=== PATIENT | female | born 1990 | race Caucasian/White ===

== ENCOUNTER 2017-02-02 16:27 | Observation (INO) | payer OTHER ==
[~2017-02-02] VITALS: Ht 172.7 cm; Wt 110.7 kg
[~2017-02-02 16:27] MED LIST: AMOXICILLIN 50500 MG PO; AMOXICILLIN500 M2 PO; AUGMENTIN1 TA1 PO; AZITHROMYCIN250 MG PO; DICLEGIS1 TCP PO; IBU800 MG PO; METFOMIN HYDRO850 MG PO; PHENERGAN 25MG.25 M1 PO; PHENERGAN25 M3 PO; PRENATAL PLUS1 TA1 PO; PROMETHAZINE PR; PROSED D/S1 TAB OR; SULFAMETHOXAZOL1 TA6 PO; VICODIN 5/500 T1 TAB PO; ZOFRAN ODT4 MG PO; ZOFRAN4 MG PO
[2017-02-02 16:37] VITALS: BP 149/88
--- NOTE | 2017-02-02 17:11 | Emergency Room Report ---
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 N Clinical Suspician of Infection? N Mental Status: 1 - Regular (Normal Baseline) Sepsis Risk:Low Sepsis Risk Have you (or family members/close friends) recently traveled outside the [place]? N If Yes, where/when: Have you had exposure to infectious disease within the past month? N TB? Other? Specify: 26 years old white female who developed sudden onset RIGHT lower quadrant pain radiating through the RIGHT flank region. She is sexually active and uses CONDOMS. Her last menstrual period was January 10. She is regular. She is 2 para 2 both were . She denies nausea vomiting dysuria or hematuria, there is no shortness of breath or chest pain. She is status post cholecystectomy. Source patient, RN notes reviewed, family Exam Limitations no limitations ALLERGIES Coded Allergies: No Known Drug Allergies (NKDA) (02/16/16) (Juan RAMIREZ,[facility]) Home Medications Reported Medications METFORMIN HCL (Metformin HCl) 850 MG PO BID Promethazine Hydrochloride (Phenergan 25MG Tab) 25 MG PO Q6H PRN (Julia RAMIREZ,[facility] [place]) History Medical History General CAD? No Angina: No [place]: No Hypertension? No Hyperlipidemia? No CHF? No DVT? No PE? No COPD? No Asthma? No Anemia? No GERD? No Gastric ulcers? No GI Bleed? No Hernia? No Thyroid Problems? No Hypothyroidism? No CVA? No Seizures? No Diabetes? No Renal Insuffiency? No End Stage Renal Disease? No UTI? No Stones? No BPH? No GB Disease: No Nephritic Syndrome? No Asplenia? No Hepatitis? No Sickle Cell Disease? No Arthritis? No Migraines? No Cataracts? No Glaucoma? No MRSA? No HIV? No TB? No Anxiety? No Depression? No Cancer? 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 Respiratory no symptoms reported Cardiovascular no symptoms reported Gastrointestinal abdominal pain Genitourinary no symptoms reported. Musculoskeletal no symptoms reported Skin no symptoms reported Psychiatric/Neurological no symptoms reported (Juan RAMIREZ,Fabiana) Physical Exam Vital Signs Vital Signs Date Time Temp Pulse Resp B/P Pulse O2 O2 Flow FiO2 Ox Delivery Rate 02/03 0043 98.1 74 16 117/62 96 02/03 0035 74 02/03 0035 98.1 74 16 117/62 02/03 0035 98.1 74 16 117/62 02/03 0035 96 ROOM AIR 02/02 2321 85 20 142/84 95 02/02 2229 83 20 138/75 98 02/02 2217 20 02/02 1942 16 02/02 1918 98 16 130/73 97 02/02 1834 98 16 128/70 100 02/02 1718 16 02/02 1706 101 18 156/73 98 02/02 1637 98.1 100 18 149/88 98 - WBC >12,000 or <4,000 or 10% bands? 2 or more SIRS Criteria Met? B/P:156/73 MAP:108 Creatinine >2.0? UA output<0.5ml/kg/hr for 2 hrs? Platelet count >100,000? Lactate >2.0mmol/1? INR >1.2 or PTT > than 60 sec? Evidence of Organ Dysfunction? Provider documented clinical suspician of infection? N Sepsis Criteria Count: 1 Sepsis Risk: Low Sepsis Risk General Appearance normal appearance, WD/WN Eye Exam - bilateral eye normal exam, bilateral eye PERRL, bilateral eye EOMI Ear, Nose, Throat hearing grossly normal, normal ENT inspection Neck normal inspection, non-tender, supple, full range of motion Respiratory Status Yes: trachea midline, chest symmetrical, non tender chest. No: respiratory distress. Lung Sounds bilateral: normal breath sounds, lungs clear. Cardiovascular normal exam, regular rate/rhythm, no peripheral edema, no gallop, no JVD, no murmur, no rub, normal peripheral pulses Peripheral Pulses Pulses normal Yes Gastrointestinal normal bowel sounds, soft, no organomegaly, no guarding, rebound, tenderness, RIGHT lower quadrant tenderness without guarding or rigidity there is cross tenderness upon palpation of the LEFT lower quadrant towards the RIGHT lower quadrant, there is no rebound tenderness, positive bowel sounds. Back normal inspection, no CVA tenderness, no vertebral tenderness Extremities non-tender, normal range of motion, normal inspection Strength 5 Upper Ext (L), 5 Upper Ext (R), 5 Lower Ext (L), 5 Lower Ext (R) Pelvic normal external exam, vulva and vagina are within normal limits, mild tenderness with guarding in the RIGHT lower quadrant, cervix is firm and closed mild cervical motion tenderness, no adnexal masses were felt. The uterus is mormal and tenderness. 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 No Results/Orders Laboratory Tests 02/02/17 1850: Urine Color YELLOW, Urine Appearance CLEAR, Urine pH 6.5, Ur Specific [place] <= 1.005, Urine Protein NEGATIVE, Urine Ketones NEGATIVE, Urine Blood NEGATIVE, Urine Nitrate NEGATIVE, Urine Bilirubin NEGATIVE, Urine Urobilinogen 0.2, Ur Leukocyte Esterase NEGATIVE, Ur Squamous Epith Cells 10-20, Urine Glucose NEGATIVE 02/02/17 1715: Sodium 137, Potassium 3.8, Chloride 103, Carbon Dioxide 28, BUN 12, Creatinine 0.8, Estimated Creat Clear 188, Estimated GFR (MDRD) 87, Glucose 102, Calcium 9.1, Total Bilirubin 0.2, AST 8 L, ALT 19, Alkaline Phosphatase 84, Total Protein 8.0, Albumin 3.9, Globulin 4.1 H, Albumin/Globulin Ratio 1.0 L, WBC 11.7 H, RBC 4.97, Hgb 13.1, Hct 39.4, MCV 79.4 L, RDW 13.1, Plt Count 399, MPV 7.4, Gran % 74.1, Gran # 8.6 H, Lymphocytes % 18.9, Monocytes % 5.1, Eosinophils % 1.6, Basophils % 0.3, Lymphocytes # 2.2, Monocytes # 0.6, Eosinophils # 0.2, Basophils # 0.0, PUBS MCHC 33.1, MCH 26.3 L Current Medication Orders Sig/Benji Start time Last Medication Dose Route Stop Time Status Admin Hydromorphone HCl 2 MG Q4HP PRN 02/02 2230 AC 02/03 IV 0731 Sodium Chloride 1,000 ML .Q8H 02/02 2230 AC 02/03 IV 0008 Sodium Chloride 10 ML PRN PRN 02/02 2230 AC IV Ondansetron HCl 0 .STK-MED ONE 02/03 2216 DC .ROUTE Hydromorphone HCl 2 MG ONCE ONE 02/02 2215 DC 02/02 IV 02/02 Ondansetron HCl 4 MG ONCE ONE 02/02 2215 DC 02/02 IV 02/02 Hydromorphone HCl 0 .STK-MED ONE 02/03 2212 DC .ROUTE Ondansetron HCl 0 .STK-MED ONE 02/02 1939 DC .ROUTE Morphine Sulfate 0 .STK-MED ONE 02/02 1937 DC .ROUTE Morphine Sulfate 2 MG ONCE ONE 02/02 193 DC 02/02 IV 02/02 193 194 Ondansetron HCl 4 MG ONCE ONE 02/02 1930 DC 02/02 IV 02/02 193 1943 Ketorolac 30 MG ONCE ONE 02/02 1715 DC 02/02 Tromethamine IV 02/02 1716 1718 Ondansetron HCl 4 MG ONCE ONE 02/02 1715 DC 02/02 IV 02/02 1716 1718 Sodium Chloride 1,000 ML .Q1H1M 02/02 1715 DC 02/02 IV 02/02 1815 1717 Sodium Chloride 10 ML PRN PRN 02/02 1715 AC IV 02/03 1703 Ketorolac 0 .STK-MED ONE 02/02 1713 DC Tromethamine .ROUTE Ondansetron HCl 0 .STK-MED ONE 02/02 1713 DC .ROUTE Sodium Chloride 1,000 ML .STK-MED ONE 02/02 1713 DC IV Orders Procedure Date/time Status DIET-NOTHING BY MOUTH 02/03 B Active COMPLETE METABOLIC PANEL 02/03 600 Complete CBC WITH AUTO DIFF 02/03 600 Complete Decision to admit 02/[address] ABD W/RLQ PAIN REQ 02/03 1704 Complete URINALYSIS/COMPLETE 02/02 170 Complete SERUM , QUAL 02/02 170 Complete CBC WITH AUTO DIFF 02/02 1702 Complete CHEM 12 PROFILE 02/02 170 Complete ADMIT PATIENT 02/02 UNK Active VITAL SIGNS 02/02 UNK Active POM NURSE ALISHA HOSE ORDER 02/02 UNK Active IV SALINE LOCK 02/02 UNK Active CODE STATUS 02/02 UNK Active PATIENT ACTIVITY ORDER 02/02 UNK Active LABS/Meds/Orders Comment Case discussed with ObGyn therapeutic recreation assistant, hereby present in the emergency room, Dr. Zhao, who was informed by the equipment service technician of the ultrasound findings consistent with ruptured ovarian cyst, currently leaking. The ObGyn is playing to admit patient and take her to exploratory laparoscopy in the morning. The pelvic, transvaginal, ultrasound reveals no ovarian torsion, and is actually consistent with a ruptured, leaking RIGHT ovarian cyst. Care transferred to ObGyn, will write temporary admission orders per hospital protocol. Upon patient's arrival to the floor, the floor nurse will contact PCP in order to obtain full inpatient admission orders. (Joe Dumont MD) Departure Departure Time of Disposition 2049 Disposition Still a Patient Condition STABLE Referrals Jaime Zhao MD. Additional Instructions The patient received morphine for pain and she continued to have pain. CT scan report was positive for a large 5.4 cm ovarian cyst. The patient wanted Dr. ZHAO notified. He recommended transvaginal ultrasound. I called DANILO the radio antenna installer. 2049 THE CARE WAS TRANSFERED TO DR MENCHACA PENDING US AND EVALUATION BY DR ZHAO FOR FINAL MEDICAL DECISION MAKING. ED Critical Care Critical Care No If Critical Care minutes are documented, the time involved in the performance of seperately reportable procedures was not counted toward critical care time documented. I directly delivered medical care to this critically ill and/or injured patient. Timely evaluation and treatment was necessary to address the significant organ system(s) dysfunction present in this patient. (Fabiana Martinez MD) Departure Clinical Impression Primary Impression: Ruptured ovarian cyst (Joe Dumont MD) at 2054 at 0832
--- NOTE | 2017-02-02 17:11 | Emergency Room Report ---
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 N Clinical Suspician of Infection? N Mental Status: 1 - Regular (Normal Baseline) Sepsis Risk:Low Sepsis Risk Have you (or family members/close friends) recently traveled outside the [place]? N If Yes, where/when: Have you had exposure to infectious disease within the past month? N TB? Other? Specify: 26 years old white female who developed sudden onset RIGHT lower quadrant pain radiating through the RIGHT flank region. She is sexually active and uses CONDOMS. Her last menstrual period was January 10. She is regular. She is 2 para 2 both were . She denies nausea vomiting dysuria or hematuria, there is no shortness of breath or chest pain. She is status post cholecystectomy. Source patient, RN notes reviewed, family Exam Limitations no limitations ALLERGIES Coded Allergies: No Known Drug Allergies (NKDA) (02/16/16) (Juan RAMIREZ,[facility]) Home Medications Reported Medications METFORMIN HCL (Metformin HCl) 850 MG PO BID Promethazine Hydrochloride (Phenergan 25MG Tab) 25 MG PO Q6H PRN (Julia RAMIREZ,[place]) History Medical History General CAD? No Angina: No [place]: No Hypertension? No Hyperlipidemia? No CHF? No DVT? No PE? No COPD? No Asthma? No Anemia? No GERD? No Gastric ulcers? No GI Bleed? No Hernia? No Thyroid Problems? No Hypothyroidism? No CVA? No Seizures? No Diabetes? No Renal Insuffiency? No End Stage Renal Disease? No UTI? No Stones? No BPH? No GB Disease: No Nephritic Syndrome? No Asplenia? No Hepatitis? No Sickle Cell Disease? No Arthritis? No Migraines? No Cataracts? No Glaucoma? No MRSA? No HIV? No TB? No Anxiety? No Depression? No Cancer? 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 Respiratory no symptoms reported Cardiovascular no symptoms reported Gastrointestinal abdominal pain Genitourinary no symptoms reported. Musculoskeletal no symptoms reported Skin no symptoms reported Psychiatric/Neurological no symptoms reported (Juan RAMIREZ,Fabiana) Physical Exam Vital Signs Vital Signs Date Time Temp Pulse Resp B/P Pulse O2 O2 Flow FiO2 Ox Delivery Rate 02/03 0043 98.1 74 16 117/62 96 02/03 0035 74 02/03 0035 98.1 74 16 117/62 02/03 0035 98.1 74 16 117/62 02/03 0035 96 ROOM AIR 02/02 2321 85 20 142/84 95 02/02 2229 83 20 138/75 98 02/02 2217 20 02/02 1942 16 02/02 1918 98 16 130/73 97 02/02 1834 98 16 128/70 100 02/02 1718 16 02/02 1706 101 18 156/73 98 02/02 1637 98.1 100 18 149/88 98 - WBC >12,000 or <4,000 or 10% bands? 2 or more SIRS Criteria Met? B/P:156/73 MAP:108 Creatinine >2.0? UA output<0.5ml/kg/hr for 2 hrs? Platelet count >100,000? Lactate >2.0mmol/1? INR >1.2 or PTT > than 60 sec? Evidence of Organ Dysfunction? Provider documented clinical suspician of infection? N Sepsis Criteria Count: 1 Sepsis Risk: Low Sepsis Risk General Appearance normal appearance, WD/WN Eye Exam - bilateral eye normal exam, bilateral eye PERRL, bilateral eye EOMI Ear, Nose, Throat hearing grossly normal, normal ENT inspection Neck normal inspection, non-tender, supple, full range of motion Respiratory Status Yes: trachea midline, chest symmetrical, non tender chest. No: respiratory distress. Lung Sounds bilateral: normal breath sounds, lungs clear. Cardiovascular normal exam, regular rate/rhythm, no peripheral edema, no gallop, no JVD, no murmur, no rub, normal peripheral pulses Peripheral Pulses Pulses normal Yes Gastrointestinal normal bowel sounds, soft, no organomegaly, no guarding, rebound, tenderness, RIGHT lower quadrant tenderness without guarding or rigidity there is cross tenderness upon palpation of the LEFT lower quadrant towards the RIGHT lower quadrant, there is no rebound tenderness, positive bowel sounds. Back normal inspection, no CVA tenderness, no vertebral tenderness Extremities non-tender, normal range of motion, normal inspection Strength 5 Upper Ext (L), 5 Upper Ext (R), 5 Lower Ext (L), 5 Lower Ext (R) Pelvic normal external exam, vulva and vagina are within normal limits, mild tenderness with guarding in the RIGHT lower quadrant, cervix is firm and closed mild cervical motion tenderness, no adnexal masses were felt. The uterus is mormal and tenderness. 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 No Results/Orders Laboratory Tests 02/02/17 1850: Urine Color YELLOW, Urine Appearance CLEAR, Urine pH 6.5, Ur Specific [place] <= 1.005, Urine Protein NEGATIVE, Urine Ketones NEGATIVE, Urine Blood NEGATIVE, Urine Nitrate NEGATIVE, Urine Bilirubin NEGATIVE, Urine Urobilinogen 0.2, Ur Leukocyte Esterase NEGATIVE, Ur Squamous Epith Cells 10-20, Urine Glucose NEGATIVE 02/02/17 1715: Sodium 137, Potassium 3.8, Chloride 103, Carbon Dioxide 28, BUN 12, Creatinine 0.8, Estimated Creat Clear 188, Estimated GFR (MDRD) 87, Glucose 102, Calcium 9.1, Total Bilirubin 0.2, AST 8 L, ALT 19, Alkaline Phosphatase 84, Total Protein 8.0, Albumin 3.9, Globulin 4.1 H, Albumin/Globulin Ratio 1.0 L, WBC 11.7 H, RBC 4.97, Hgb 13.1, Hct 39.4, MCV 79.4 L, RDW 13.1, Plt Count 399, MPV 7.4, Gran % 74.1, Gran # 8.6 H, Lymphocytes % 18.9, Monocytes % 5.1, Eosinophils % 1.6, Basophils % 0.3, Lymphocytes # 2.2, Monocytes # 0.6, Eosinophils # 0.2, Basophils # 0.0, PUBS MCHC 33.1, MCH 26.3 L Current Medication Orders Sig/Benji Start time Last Medication Dose Route Stop Time Status Admin Hydromorphone HCl 2 MG Q4HP PRN 02/02 2230 AC 02/03 IV 0731 Sodium Chloride 1,000 ML .Q8H 02/02 2230 AC 02/03 IV 0008 Sodium Chloride 10 ML PRN PRN 02/02 2230 AC IV Ondansetron HCl 0 .STK-MED ONE 02/03 2216 DC .ROUTE Hydromorphone HCl 2 MG ONCE ONE 02/02 2215 DC 02/02 IV 02/02 Ondansetron HCl 4 MG ONCE ONE 02/02 2215 DC 02/02 IV 02/02 Hydromorphone HCl 0 .STK-MED ONE 02/03 2212 DC .ROUTE Ondansetron HCl 0 .STK-MED ONE 02/02 1939 DC .ROUTE Morphine Sulfate 0 .STK-MED ONE 02/02 1937 DC .ROUTE Morphine Sulfate 2 MG ONCE ONE 02/02 193 DC 02/02 IV 02/02 193 194 Ondansetron HCl 4 MG ONCE ONE 02/02 1930 DC 02/02 IV 02/02 193 1943 Ketorolac 30 MG ONCE ONE 02/02 1715 DC 02/02 Tromethamine IV 02/02 1716 1718 Ondansetron HCl 4 MG ONCE ONE 02/02 1715 DC 02/02 IV 02/02 1716 1718 Sodium Chloride 1,000 ML .Q1H1M 02/02 1715 DC 02/02 IV 02/02 1815 1717 Sodium Chloride 10 ML PRN PRN 02/02 1715 AC IV 02/03 1703 Ketorolac 0 .STK-MED ONE 02/02 1713 DC Tromethamine .ROUTE Ondansetron HCl 0 .STK-MED ONE 02/02 1713 DC .ROUTE Sodium Chloride 1,000 ML .STK-MED ONE 02/02 1713 DC IV Orders Procedure Date/time Status DIET-NOTHING BY MOUTH 02/03 B Active COMPLETE METABOLIC PANEL 02/03 600 Complete CBC WITH AUTO DIFF 02/03 600 Complete Decision to admit 02/[address] ABD W/RLQ PAIN REQ 02/03 1704 Complete URINALYSIS/COMPLETE 02/02 170 Complete SERUM , QUAL 02/02 170 Complete CBC WITH AUTO DIFF 02/02 1702 Complete CHEM 12 PROFILE 02/02 170 Complete ADMIT PATIENT 02/02 UNK Active VITAL SIGNS 02/02 UNK Active POM NURSE ALISHA HOSE ORDER 02/02 UNK Active IV SALINE LOCK 02/02 UNK Active CODE STATUS 02/02 UNK Active PATIENT ACTIVITY ORDER 02/02 UNK Active LABS/Meds/Orders Comment Case discussed with ObGyn instrumentation supervisor, hereby present in the emergency room, Dr. Zhao, who was informed by the scrub technician of the ultrasound findings consistent with ruptured ovarian cyst, currently leaking. The ObGyn is playing to admit patient and take her to exploratory laparoscopy in the morning. The pelvic, transvaginal, ultrasound reveals no ovarian torsion, and is actually consistent with a ruptured, leaking RIGHT ovarian cyst. Care transferred to ObGyn, will write temporary admission orders per hospital protocol. Upon patient's arrival to the floor, the floor nurse will contact PCP in order to obtain full inpatient admission orders. (Joe Dumont MD) Departure Departure Time of Disposition 2049 Disposition Still a Patient Condition STABLE Referrals Jaime Zhao MD. Additional Instructions The patient received morphine for pain and she continued to have pain. CT scan report was positive for a large 5.4 cm ovarian cyst. The patient wanted Dr. ZHAO notified. He recommended transvaginal ultrasound. I called DANILO the smt machine operator. 2049 THE CARE WAS TRANSFERED TO DR MENCHACA PENDING US AND EVALUATION BY DR ZHAO FOR FINAL MEDICAL DECISION MAKING. ED Critical Care Critical Care No If Critical Care minutes are documented, the time involved in the performance of seperately reportable procedures was not counted toward critical care time documented. I directly delivered medical care to this critically ill and/or injured patient. Timely evaluation and treatment was necessary to address the significant organ system(s) dysfunction present in this patient. (Fabiana Martinez MD) Departure Clinical Impression Primary Impression: Ruptured ovarian cyst (Joe Dumont MD) at 2054 at 0832
[2017-02-02 17:26] LABS: HEMOGLOBIN 13.1 g/dL (12.2-16.2); LYMPH # 2.2 K/mm3 (0.7-4.5); LYMPH % 18.9 % (10-50.0)
[2017-02-02 18:59] LABS: URINE BILIRUBIN - DIPSTICK NEGATIVE (NEG); URINE BLOOD NEGATIVE (NEG)
--- NOTE | 2017-02-02 22:26 | RADIOLOGY REPORT PS360 ---
US PELVIS-TRANSVAGINAL ONLY HISTORY: Right lower quadrant pain with large right ovarian cyst. Evaluate for torsion LARGE RT OV CYST, R/O TORSION ORDERING PHYSICIAN: Fabiana Martinez MD PATIENT AGE: 26 years COMPARISON: None FINDINGS: The uterus measures 8.4 x 4.5 x 6.4 cm and has a combined endometrial thickness of 13 mm. The left ovary is 2.9 x 1.9 x 1.6 cm with multiple small ovarian follicles. The right ovary is 5.4 x 3.3 x 4.8 cm and contains a 4.6 x 3.4 cm cyst with a somewhat lacy appearance with posterior acoustical enhancement. This could represent prominent hemorrhagic ovarian cyst versus endometrioma. Trace amount cul-de-sac fluid noted. Blood flow is present to both ovaries. IMPRESSION: 1. 4.6 cm complex right ovary and cysts which may be due to hemorrhagic ovarian cyst versus endometrioma. 2. There is blood flow present to both ovaries. No evidence of torsion. 3. Multiple follicles of the left ovary. 4. Thickened endometrium
[2017-02-03] VITALS (18 sets, daily range): BP systolic 102–135; BP diastolic 42–80
--- NOTE | 2017-02-03 04:33 | RADIOLOGY REPORT PS360 ---
CT ABD PELVIS W/WO CONTRAST INDICATION: Right lower quadrant pain with nausea and vomiting RLQ ABD PAIN ORDERING PHYSICIAN: Fabiana Martinez MD PATIENT AGE: 26 years COMPARISON: 07/14/2011 TECHNIQUE: Axial images are obtained without and with contrast. Sagittal and coronal reformatted images are reviewed as well. FINDINGS: The lung bases are clear. There has been a prior cholecystectomy. The liver, spleen, adrenal glands, and pancreas are unremarkable. No biliary dilatation. No renal calculi or hydronephrosis. No ureteral calculi. No intestinal obstruction or free air. Unremarkable appendix. There is a 5 cm cystic lesion in the posterior adnexal area on the right consistent with an ovarian cyst. There is thickening versus nondistention of the ascending, transverse, and descending colon. No stranding of the pericolic fat. No evidence of diverticulitis. No acute bony anomalies. IMPRESSION: 1. Thickening of the colon which may be due to nondistention or colitis. 2. No evidence of appendicitis or obstructing ureteral calculus. 3. 5 cm right ovarian cyst which may be better evaluated with ultrasound
--- NOTE | 2017-02-03 06:36 | ACUTE CARE PROGRESS NOTE (QUA) ---
Progress Notes Subjective Date 02/03/17 Time 0634 Note The patient has done reasonably well overnight. She has been medicated twice for pain. She states that her RIGHT lower quadrant pain still exists, but is somewhat relieved. She has not been out of bed yet. Complete blood count has just been drawn (results pending). She is afebrile. I will reevaluate later this morning. Assessment/Plan This inpt stay is expected to cross 2 MNs from start of care No at 0635
[2017-02-03 06:38] LABS: HEMOGLOBIN 12.3 g/dL (12.2-16.2)
--- NOTE | 2017-02-03 07:34 | PHARMACY CLINIC NOTE ---
Patient Demographics Patient Demographics Admission date: 02/02/17 Date: 02/03/17 Time: 0734 Allergies Coded Allergies: No Known Drug Allergies (NKDA) (02/16/16) HEIGHT- FT: 5 IN: 8.00 K.678 VTE General Information Labs: Laboratory Tests 02/03 02/02 0615 1715 Hematology Hgb (12.2 - 16.2 g/dL) 12.3 13.1 Hct (37.0 - 47.0 %) 37.6 39.4 Plt Count (142 - 424 K/mm3) [phone] Disclaimer The following section includes nursing documentation that has been pulled in for pharmacy review. Patient's VTE score: 1 Patient's VTE Risk: VERY LOW RISK Clinical trial participant? No VTE prophylaxis [id number] [id number] VTE prophylaxis ordered? Yes Type of prophylaxis/treatment: ALISHA at 0734
--- NOTE | 2017-02-03 07:49 | ACUTE CARE PROGRESS NOTE (QUA) ---
Progress Notes Subjective Date 02/03/17 Time 0748 Note The patient's complete blood count remained stable. However, in spite of IV Dilaudid, she is unable to stand or walk without significant RIGHT lower quadrant pain. I discussed this with the patient and her family. The plan is for a diagnostic laparoscopy today, with aspiration of RIGHT ovarian cyst. The patient understands the risks and benefits of the procedure. She also understands the small possibility of the need for an open laparotomy. She wishes to proceed. Assessment/Plan This inpt stay is expected to cross 2 MNs from start of care No at 0701
--- NOTE | 2017-02-03 11:58 | Operative Note ---
Procedure/Operative Record Date of Procedure: 02/03/17 Referring physician: Dr. Livingston Pre-op diagnosis: 1. Pelvic pain. 2. RIGHT ovarian cyst. Post-op diagnosis: 1. Pelvic pain. 2. Leaking hemorrhagic RIGHT ovarian cyst, undergoing torsion. Procedure performed: 1. Diagnostic laparoscopy. 2. Aspiration of RIGHT ovarian cyst. 3. Detorsion of RIGHT ovarian cyst. 4. Evacuation of hemoperitoneum. 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 Pelvic pain. 2. RIGHT ovarian cyst. Description of procedure: After the patient was prepped and draped in usual fashion and general anesthesia was administered, examination under anesthesia revealed a normal-sized anteverted uterus, with no adnexal masses palpable. A weighted speculum was placed within the posterior fourchette of the vagina, anterior lip of the cervix was grasped with a single-tooth tenaculum. The cervix was easily dilated to number 14 Hegar dilators, and a HUMI uterine elevator was inserted into the endocervix, and the bulb inflated for easy uterine manipulation during the laparoscopy. After appropriate regloving, the skin on either side of the umbilicus was tented up with towel clips. A small incision was made in the base of the umbilicus with a knife, and a Veress needle was inserted into the abdominal cavity. After demonstration of negative pressure, and adequate phisoperitoneum was created with carbon dioxide gas. The Veress needle was then replaced with a trocar and cannula, using the Lean Train system, and the trocar replaced with a laparoscope. Dark blood was noted in the cul-de-sac and throughout the pelvis, extending up the RIGHT gutter. It was suctioned. The uterus was of normal size and configuration. Each tube was followed out to its fimbriated end, which appeared free. The LEFT ovary appeared normal. Some omental adhesions in the RIGHT upper quadrant, presumably from the previous laparoscopic cholecystectomy. The RIGHT ovary was at least 7 cm in diameter, and forced behind the uterus. It was thin- walled. A needle aspirator was inserted into the cyst, and a large amount of serosanguineous fluid and blood wasRetrieved. The cyst deflated to normal size and the puncture site was fulgurated. The remainder of any blood was suctioned from the pelvis, and the phisoperitoneum was reduced, there being no further pathology noted. The instruments were removed under direct visualization. The skin incision was infused with a dilute solution of Marcaine, as a local anesthetic, and closed with a subcuticular suture of 3-0 Vicryl. The HUMI was deflated and removed. The sponge and needle counts correct. Estimated blood loss was 100 mL. The patient tolerated the procedure well, was taken to PACU in excellent condition. EBL (ml): 100 Complications: None Specimens: None at 1153
--- NOTE | 2017-02-03 12:09 | Anesthesia Record ---
Anesthesia Record Part II Discharge time: 1230 Destination: Second Floor PACU nurse assessment review? Yes Patient is: Stable Anesthesia complications? No at 1203
--- NOTE | 2017-02-03 12:09 | Anesthesia Record ---
Anesthesia Record Part I Total IV fluids: 700 EBL (ml): 100 Urine Output: 200 B/P: 116/60 % SaO2: 100 Pulse: 78 Resps: 16 Temp: 98 Patient is: Drowsy, Nasal O2, Stable Stable to PACU at: 1200 at 1208
[2017-02-03 13:00] LABS: HEMOGLOBIN 12.3 g/dL (12.2-16.2)
--- NOTE | 2017-02-03 14:52 | ACUTE CARE PROGRESS NOTE (QUA) ---
Progress Notes Subjective Date 02/03/17 Time 1450 Note This is day of surgery and hospital day number 2. The patient is afebrile. Vital signs are stable. Wound clean. Abdomen soft. Her preop pain is much improved. She is still somewhat drowsy and I feel she is best served to be observed for any further abdominal bleeding. If she is stable, home tomorrow. Assessment/Plan This inpt stay is expected to cross 2 MNs from start of care No at 6023
[2017-02-03] MEDS ORDERED: PRENATAL PLUS1 TA1 PO (15:09)
[2017-02-04 05:25] VITALS: BP 95/38
--- NOTE | 2017-02-04 06:18 | ACUTE CARE PROGRESS NOTE (QUA) ---
Progress Notes Subjective Date 02/04/17 Time 0617 Note This is hospital day number 3 and postop day number 1. The patient is afebrile. Vital signs stable. Hemoglobin 12.3 g. Abdomen soft. Wound clean. Minimal pain. She'll be discharged today. Assessment/Plan This inpt stay is expected to cross 2 MNs from start of care No at 0618
[2017-02-04] MEDS ORDERED: PROVERA 10MG TA10 MG PO (06:20)
--- NOTE | 2017-02-04 06:25 | DISCHARGE SUMMARY STANDARD ---
Discharge Summary Date of admission: 02/02/17 Date of discharge: 02/04/17 Patient condition: Stable Discharge diagnosis (es): 1. Pelvic pain. 2. Leaking hemorrhagic RIGHT ovarian cyst, undergoing torsion Hospital course: This 26-year-old white female was admitted with severe abdominal pain and CT and ultrasound evidence of a RIGHT adnexal mass. She was initially observed overnight, but her pain did not dissipate with narcotic management, and so she was taken to the operating room on 02/03/17. She underwent a diagnostic laparoscopy with evacuation of hemoperitoneum and aspiration indeed torsion of a large RIGHT ovarian cyst. Postoperatively, the patient has done well. Her hemoglobin is 12.3 g, and has been stable. Her wound is clean. Her abdomen is soft. She is eating and ambulating and passing flatus. She is not a smoker. She is discharged home on the first postoperative and third hospital day on Tylenol and Motrin, as needed for pain. She is to continue the metformin that she takes for polycystic ovarian syndrome. She is to begin on Provera 10 mg 1 by mouth daily for 10 days for ovarian cyst suppression. She is given appropriate instructions as to diet, exercise, and wound care, and she is to return the office in 2 weeks for follow-up at 0624
[2017-02-04 08:15] VITALS: BP 118/78
== END 2017-02-04 08:50 | disposition home or self-care (01) ==
LOC: ER 16:27 → 2ND 22:04 → OB 22:06 → 2ND 22:06 → OB 22:06
PROVIDERS: Emergency Medicine; Obstetrics & Gynecology
PROC: 0U904ZX Drainage of Right Ovary, Percutaneous Endoscopic Approach, Diagnostic (ICD-10-PCS; principal; 2017-02-02)
DX: N83.201 Unspecified ovarian cyst, right side (principal); N83.53 Torsion of ovary, ovarian pedicle and fallopian tube; K66.1 Hemoperitoneum
CPT/HCPCS: G0378; J0131; J2405; J2710